=== PATIENT | male | born 1995 | race Caucasian/White ===

== ENCOUNTER 2017-05-19 16:57 | Emergency (ER) | payer SELFPAY ==
[2017-05-19] MEDS ORDERED: ACETAMINOPHEN TAB 500 MG TAB PO STA (17:19)
--- NOTE | 2017-05-19 17:19 | ED ---
General Adult HPI - General Chief complaint: Upper Respiratory Infection Stated complaint: Flu Symptoms Time Seen by Provider: 05/19/17 17:12 Source: patient, family, RN notes reviewed Mode of arrival: ambulatory Limitations: no limitations - History of Present Illness Initial comments: Patient is a pleasant 21-year-old male presenting to the emergency department with cough and fever and fatigue. Onset of symptoms was around 48 hours ago. Patient had similar symptoms a week or 2 ago. Cough is mostly nonproductive. Occasional clear sputum. Patient has had fevers up to 101 or 102. Fever seem somewhat improved today. Patient has been fatigued and sleeping a lot. No rhinorrhea or sore throat. Decreased appetite. - Related Data Home Medications Medication Instructions Recorded Confirmed No Known Home Medications [No 05/19/17 05/19/17 Known Home Medications] Allergies Allergy/AdvReac Type Severity Reaction Status Date / Time No Known Allergies Allergy Verified 05/19/17 18:06 Review of Systems ROS Statement: Those systems with pertinent positive or pertinent negative responses have been documented in the HPI. ROS Other: All systems not noted in ROS Statement are negative. Constitutional: Reports: fever, chills, weakness Eyes: Denies: eye pain ENT: Denies: ear pain Respiratory: Reports: cough Cardiovascular: Denies: chest pain Endocrine: Reports: fatigue Gastrointestinal: Denies: abdominal pain Genitourinary: Denies: dysuria Musculoskeletal: Denies: back pain Skin: Denies: rash Neurological: Denies: weakness Past Medical History Past Medical History: No Reported History Additional Past Medical History / Comment(s): CHEWS TOBACCO History of Any Multi-Drug Resistant Organisms: None Reported Past Surgical History: No Surgical Hx Reported Past Psychological History: No Psychological Hx Reported Smoking Status: Never smoker Past Alcohol Use History: None Reported Past Drug Use History: None Reported General Exam Limitations: no limitations General appearance: alert, in no apparent distress Head exam: Present: atraumatic Eye exam: Present: normal appearance, PERRL ENT exam: Present: normal oropharynx Neck exam: Present: normal inspection Respiratory exam: Present: normal lung sounds bilaterally Cardiovascular Exam: Present: tachycardia GI/Abdominal exam: Present: soft. Absent: tenderness Extremities exam: Present: normal inspection Neurological exam: Present: alert Psychiatric exam: Present: normal affect, normal mood Skin exam: Present: normal color Course Vital Signs 05/19/17 05/19/17 17:15 18:30 Temperature 99.1 F 98.6 F Pulse Rate 126 H 85 Respiratory 20 18 Rate Blood Pressure 141/90 O2 Sat by Pulse 94 L 94 L Oximetry Medical Decision Making - Medical Decision Making Patient reevaluated and resting comfortably in bed. Patient updated on results. Tamiflu would not be provided secondary to onset of symptoms was at 48 hours or more. - Lab Data Lab Results 05/19/17 Range/Units 17:42 Influenza Type A RNA Detected H (Not Detectd) Influenza Type B (PCR) Not Detected (Not Detectd) - Radiology Data Radiology results: image reviewed (Chest x-ray shows no acute process) Disposition Clinical Impression: Influenza Disposition: HOME SELF-CARE Condition: Stable Instructions: Influenza (ED) Additional Instructions: Please follow-up with primary care physician in the next day or 2 for recheck. Continue Tylenol and Motrin as needed. Return for difficulty breathing, worsening symptoms or other concerns Referrals: Sam Elaine MD [STAFF PHYSICIAN] - 1-2 days Time of Disposition: 18:35
[2017-05-19] MEDS ORDERED: IBUPROFEN 600 MG TAB PO STA (17:20)
--- NOTE | 2017-05-19 17:34 | XR ---
EXAMINATION TYPE: XR chest 2V DATE OF EXAM: 05/19/2017 COMPARISON: NONE HISTORY: Fever, cough, and congestion for 2 days TECHNIQUE: Frontal and lateral views of the chest are obtained. FINDINGS: There is no focal air space opacity, pleural effusion, or pneumothorax seen. The cardiac silhouette size is within normal limits. The osseous structures are intact. IMPRESSION: No acute cardiopulmonary process.
[2017-05-19 18:31] VITALS: PULSE 85; RESP 18; TEMP 98.6
[2017-05-19 18:45] VITALS: BP 122/66
== END 2017-05-19 18:45 | disposition home or self-care (01) ==
LOC: EC 16:57
DX: J11.1 Influenza due to unidentified influenza virus with other respiratory manifestations (principal); F17.220 Nicotine dependence, chewing tobacco, uncomplicated
CPT/HCPCS: 71046; 87502; 99283

== ENCOUNTER 2021-02-27 13:10 | Inpatient (IN) | payer MEDICAID ==
--- NOTE | 2021-02-27 14:38 | ED ---
General Adult HPI - General Source: patient, family <Emmanuel Carrillo - Last Filed: 02/27/21 14:35> - General Source: RN notes reviewed, old records reviewed <Ajit Pierce - Last Filed: 02/27/21 22:06> - General Stated complaint: mental health - History of Present Illness Initial comments: 25-year-old male presents to the emergency room for chief complaint of mental health issues. Patient's speaking for him. Patient's states that he has told her that he does not want to live anymore. He states that although he has had this he does not mean it. He gets into angry and disruptive phases which has been ongoing for about a year now. He apparently gets upset they cannot control these episodes. Since then he has been destroying things and then hitting his head on the wall. Patient does not take any medications. Patient refusing to answer questions at this time. Patient has no other complaints at this time including shortness of breath, chest pain, abdominal pain, nausea or vomiting, headache, or visual changes. (Emmanuel Carrillo) I evaluated the patient when he was placed in a room. 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 Patient's is petitioned the patient. He has been having worsening anger outbursts over the last year and a half and today was telling her that he wanted to kill himself. The patient initially was not cooperative when he arrived to the department but eventually did consent to changing clothes, and obtaining a UDS and VAT. I spoke with the patient, he has no acute complaints at this time. He is withdrawn does not want to discuss much with me. He denies any visual or auditory hallucinations, denies any suicidal or homicidal ideations, attempts, plans. He has no other acute complaints at this time. Denies any alcohol use or drug use. Has no other acute complaints and denies chest pain, shortness breath, fevers, chills, cough. Patient presents for psychiatric evaluation. I agree with the above assessment by my mid-level provider prior to my evaluation. (Ajit Pierce) - Related Data Home Medications Medication Instructions Recorded Confirmed No Known Home Medications 05/19/17 02/27/21 Allergies Allergy/AdvReac Type Severity Reaction Status Date / Time No Known Allergies Allergy Verified 02/27/21 14:35 Review of Systems ROS Other: All systems not noted in ROS Statement are negative. <Emmanuel Carrillo - Last Filed: 02/27/21 14:35> ROS Other: All systems not noted in ROS Statement are negative. <Ajit Pierce - Last Filed: 02/27/21 22:06> ROS Statement: Those systems with pertinent positive or pertinent negative responses have been documented in the HPI. Review of Systems: CONST: Denies fever EYES: Denies blurry vision ENT: Denies nasal congestion C/V: Denies Chest pain RESP: Denies shortness of breath GI: Denies abdominal pain : Denies dysuria SKIN: Denies rash. MSK: Denies joint pain. NEURO: Denies headache PSYCH: Denies suicidal and homicidal ideations/plans/attempts. Denies visual or auditory hallucinations. (Ajit Pierce) Past Medical History Past Medical History: No Reported History Additional Past Medical History / Comment(s): CHEWS TOBACCO History of Any Multi-Drug Resistant Organisms: None Reported Past Surgical History: No Surgical Hx Reported Past Psychological History: No Psychological Hx Reported Past Alcohol Use History: None Reported Past Drug Use History: None Reported <Emmanuel Carrillo - Last Filed: 02/27/21 14:35> General Exam General appearance: alert Psychiatric exam: Present: agitated <Emmanuel Carrillo - Last Filed: 02/27/21 14:35> <Ajit Pierce - Last Filed: 02/27/21 22:06> - General Exam Comments Initial Comments: General: Appears in no acute distress. HEAD: With no signs of severe head trauma. He does have small abrasion located over the right frontal forehead with no active bleeding. There is no skin breakdown. EYES: PERRLA, EOMI, conjunctiva normal, no discharge. Pupils are 3 mm and e qual bilaterally. ENT: Hearing grossly intact, normal oropharynx. RESPIRATORY: Clear breath sounds bilaterally. No wheezes, rales, or rhonchi. C/V: Regular rate and rhythm. S1 and S2 auscultated, no edema, peripheral pulses 2+ and intact throughout ABD: Abd is soft, nontender, nondistended EXT: Normal range of motion, no obvious deformity SKIN: No rashes or lesions observed on exposed skin. NEURO: Alert and oriented 4. No focal deficits appreciated. (Ajit Pierce) Course Vital Signs 02/27/21 02/27/21 02/27/21 15:37 16:00 17:00 Respiratory 20 20 20 Rate 02/27/21 02/27/21 18:00 19:00 Respiratory 20 20 Rate Medical Decision Making <Ajit Pierce - Last Filed: 02/27/21 22:06> - Medical Decision Making Based on the patient's presentation and physical exam, I do believe that he requires EPS evaluation. BAT was 0. UDS was ordered. At this time the patient is medically cleared for evaluation by psychiatry. They were notified. Patient and his are in agreement this plan. Disposition is pending psychiatric evaluation. Psychiatry determined that the patient requires inpatient psychiatric admission. Patient will not Pont[place] sign himself in. Certification was contacted by myself. Patient was therefore admitted to inpatient psychiatry in stable condition. (Ajit Pierce) - Lab Data Lab Results 02/27/21 Range/Units 18:31 Coronavirus (PCR) Not Detected (Not Detectd) Disposition <Emmanuel Carrillo - Last Filed: 02/27/21 14:35> <Ajit Pierce - Last Filed: 02/27/21 22:06> Clinical Impression: Encounter for psychiatric assessment Disposition: ADMITTED IP TO THIS HOSP Condition: Stable
[2021-02-27] MEDS ORDERED: HALOPERIDOL LACTATE 5 MG/ML 1 ML VIAL IM PRN ×2 (18:01→19:40)
[2021-02-27] MEDS ORDERED: LORazepam 2 MG/ML INJ IM PRN ×2 (18:01→19:40)
[2021-02-27] MEDS ORDERED: IBUPROFEN 600 MG TAB PO STA (18:25)
[2021-02-27] MEDS ORDERED: MAG HYDROX/AL HYDROX/SIMETH 30 ML CUP PO PRN (19:39)
[2021-02-27] MEDS ORDERED: MAGNESIUM HYDROXIDE 2,400 MG/10 ML CUP PO PRN (19:39)
[2021-02-27] MEDS ORDERED: LORazepam 1 MG TAB PO PRN (19:39)
[2021-02-27] MEDS ORDERED: ACETAMINOPHEN TAB 325 MG TAB PO PRN (19:39)
[2021-02-27] MEDS ORDERED: haloperidoL 5 MG TAB PO PRN (19:40)
--- NOTE | 2021-02-27 23:52 | P.PN ---
Progress Note - Text Progress Note Date: 02/27/21 Patient is refusing care
[2021-02-28 08:32] LABS: ALT 42 U/L (4-49); AST 35 U/L (17-59); African American GFR (CKD) >90 (>60 ml/min/1.73 sqM); Albumin 4.9 g/dL (3.5-5.0); Alkaline Phosphatase 89 U/L (38-126); Anion Gap 10 mmol/L; Blood Urea Nitrogen 25 mg/dL (9-20); Calcium 10.4 mg/dL (8.4-10.2); Carbon Dioxide 30 mmol/L (22-30); Chloride 96 mmol/L (98-107); Glucose 75 mg/dL (74-99); Non-African American GFR(CKD) >90 (>60 ml/min/1.73 sqM); Potassium 4.6 mmol/L (3.5-5.1); Sodium 136 mmol/L (137-145); Total Bilirubin 2.3 mg/dL (0.2-1.3); Total Protein 7.9 g/dL (6.3-8.2)
[2021-02-28 09:05] LABS: Basophils # (A) 0.1 k/uL (0-0.2); Basophils % (A) 1 %; Eosinophils # (A) 0.1 k/uL (0-0.7); Eosinophils % (A) 1 %; HCT 50.8 % (39.0-53.0); HGB 17.3 gm/dL (13.0-17.5); Lymphocytes # (A) 1.8 k/uL (1.0-4.8); Lymphocytes % (A) 21 %; MCH 29.3 pg (25.0-35.0); MCHC 34.1 g/dL (31.0-37.0); Mean Platelet Volume 6.7; Monocytes # (A) 0.4 k/uL (0-1.0); Monocytes % (A) 5 %; Neutrophils # (A) 6.1 k/uL (1.3-7.7); Neutrophils % (A) 71 %; Platelet Count 321 k/uL (150-450); RBC 5.91 m/uL (4.30-5.90); RDW 12.2 % (11.5-15.5); WBC 8.5 k/uL (3.8-10.6)
[2021-02-28] MEDS: OLANZapine 5 MG TAB PO SCH ×2 (12:54→23:57)
[2021-02-28] MEDS: FLUoxetine HCL 20 MG CAP PO SCH (12:54)
[2021-02-28 15:58] LABS: Chol/HDL Ratio 3.94 Ratio; LDL Cholesterol,Calculated 148.9 mg/dL (0.0-131.0)
--- NOTE | 2021-02-28 17:13 | HP ---
HISTORY AND PHYSICAL DATE OF SERVICE: 02/28/2021 IDENTIFYING DATA: The patient is a 25-year-old male. He lives with his . He presented to the ED for evaluation where his completed a petition for involuntary hospitalization. CHIEF COMPLAINT: The patient was depressed. He was having anger outbursts with property destruction. He has significant feelings of guilt. HISTORY OF PRESENTING ILLNESS: The patient has not had a prior psychiatric hospitalization. He has not been involved in any mental health care. He has not been on any psychotropic medications. His current situation is that he has periodic outbursts where he gets very angry. He says for the most part he focuses the anger on himself and starts ruminating about the idea that he has done bad things and that there is something wrong with him. He says that he gets in a very extreme state, though he does not want to hurt anyone else, so as such he may break things. He says that typically if he is holding something in his hand he will throw it. He has broken objects. He was vague about how often he gets into these anger outbursts. He says the more severe ones would occur once every few months. He acknowledges that his has been concerned about his situation, though he was not able to give much detail as to how his sees his situation. He notes that his sleep is up and down. He says his appetite is fairly good. He does not identify hallucinations or delusional thinking. He says he has significant anxiety at times and can have panic attacks. He questions whether he has some posttraumatic issues. It is noted that he had a difficult growing up. He notes that his parents were most likely never together. He lived mainly with his mother though did have visits with his father. When he was in fourth grade his father hung himself, committing suicide. He recalls that his father called him the night before the suicide, making a statement, "The money is on its way." He says he subsequently interpreted that as that he or family would be receiving money from father's life insurance. He said that he had no awareness of his father's mental health state. His father was single and had moved back in with the father's parents. Mostly he lived with his mother. He was the only child. He said that he was left at home alone much of the time from fairly young days. He describes depressed moods, loss of energy and motivation. He denies any substance use issues, though said that he did drink moderately or more, though stopped using alcohol two years ago. He is admitted for further evaluation. SUBSTANCE USE HISTORY: None reported. PAST MEDICAL HISTORY: Patient reported no chronic or current general health complaints. It is noted that the patient hit his head against the wall as part of the issues leading to this hospitalization. He has significant bruising on his forehead. FAMILY AND SOCIAL HISTORY: The patient has been together with his since 2014. The two of them have been 2 years. He graduated from high school. He dropped out of college during his first year when he was at [employer]. At that time he had thought about going into athletic training. He currently works doing various [employer] jobs. He says it is on a tym-ulp-bzpi basis. He has been hoping to develop it into a business. He said he would consider going back to [employer] to study business; that might help him with his efforts. MENTAL STATUS EXAM: Patient sat without restlessness. Eye contact was fair. Psychomotor activity was slowed. Speech was monotone. He answered questions with brief responses. His thoughts were clear and coherent. He did not say a lot. He was not spontaneous or interactive. His affect was flat, his mood depressed. He seemed significantly distressed. There was no indication of thought disorder. He denied thoughts of harm at the time of the interview, though his documented on petition that he had made statements of not wanting to live any longer. On cognitive exam he was oriented x3 and alert. Recent and remote memory was intact. He could give 3/3 objects in 4 minutes. He could spell "world" forward and backwards. He could give the days of the week in reverse order without difficulties. Fund of knowledge was average or somewhat above average, insight and judgment fair. PHYSICAL EXAMINATION: As per medical consultation. ASSESSMENT: This 25-year-old male is diagnosed with major depression. He has significant issues with guilt that seem to drive some of his outbursts. He is not able to clearly identify where his distressing emotions come from, though then typically takes it out on himself. Strengths include [place] intelligence. Weakness includes his difficulties with expressing emotions in a productive way. DIAGNOSIS: 1. Major depression, chronic and recurrent, severe, without psychotic features. 2. Rule out posttraumatic stress disorder. RECOMMENDATIONS: Patient will be admitted for comprehensive medical, psychiatric and psychosocial evaluation. We will engage the patient in individual and group therapeutic activities. I had an extensive discussion with the patient regarding his situation and a discussion of medication options. The patient was willing to initiate antidepressant therapy. I will start the patient on Prozac 20 mg a day. I discussed the treatment process related to antidepressants. I talked about side effects and also the time course of treatment. In addition I will start the patient on Zyprexa 5 mg twice a day. The aim of Zyprexa is to help reduce physiologic stress response relating to his high anxiety that leads to self-abusive outbursts. Zyprexa also is indicated to augment his antidepressant. We will set up a family meeting with the patient's for tomorrow. We will focus on stabilization and discharge planning. JORGE / NIKUNJ: [id number] /
[2021-03-01] MEDS: OLANZapine 5 MG TAB PO SCH ×2 (08:51→20:47)
[2021-03-01] MEDS: FLUoxetine HCL 20 MG CAP PO SCH (08:51)
--- NOTE | 2021-03-01 11:44 | PN ---
PROGRESS NOTE DATE OF SERVICE: 03/01/2021. CHIEF COMPLAINT: The patient was depressed. He was having anger outbursts with property destruction. He had significant feelings of guilt. INTERVAL HISTORY: The patient has been doing fair. He had a quiet day yesterday. He tends to keep to himself. He does not interact much. He comes on the unit some. He did not attend groups yesterday. He talked yesterday about being quite distressed about being in the hospital because he felt claustrophobic. He said he slept fair last night. He has been cooperative with care. Today he has been up. Again he continues to keep to himself. We had a family meeting with the patient and his . It is noteworthy that throughout the family meeting, the patient said very little. His notes that he has had problems with anger outbursts. When he would get into an outburst, typically it would last for a few days or more. He then might get into a period where he would just sleep excessively and complain of feeling hot and sweaty. She noted that problems seemed to become more pronounced in the summer of 2019. He has had a gradual progression since then. She notes that this past summer he seemed to be doing okay in his moods, though over the last several weeks or more he has been showing more difficulties with a down mood. She notes that he does have times where he gets involved in activities and then loses track of time to a pretty significant degree. He might be up all night engaged in some activity and not be aware that it is already early in the morning. The same would be true at work, that he could work all day and then in the evening time make mention of the fact that he had not eaten all day. This again is something that has been showing up over the last year and somewhat progressive. Neither the patient nor his could identify any specific things that would seem to precipitate these mood difficulties. While the patient had stated previously that when he would get into anger spells he might throw something that he had in his hand, his today noted that things were more severe than that, where he would break things and that he could be destructive over a matter of a few days. When he is in one of the spells, he has difficulty identifying what the issues are. When he is outside of one of these periods, he is not really able to talk about emotions or risk factors for these events. From the 's standpoint, she noted that she was very significantly concerned about his condition. She was quite tearful at different times during the interview, describing how she was scared for him. It is noted that from the patient's standpoint, he said very little about most of his issues. He did express distress about the whole idea of being in the hospital and believed that the hospital does not have anything to offer that will benefit him. I did review treatment issues with the patient and his . It is noted that when I talked about the possibility of going up on the Zyprexa for high stress, the patient seemed to become somewhat disgruntled by that idea, stating that he had not been on the twice-a-day dosing to see how well that would work before considering going higher, though his did state that his main concern about medications is he not be on medications that would make him be "a zombie." He reports no problems or side effects relating to his medications. MENTAL STATUS: Patient sat in the family session in a slumped posture with his head down. He gave no eye contact. Early on in the interview he said almost nothing. As the interview went on, he did make a few statements, though mostly he talked in very brief statements and did not elaborate. His affect was anxious and intense, his mood depressed. He was significantly distressed. He did not voice any thoughts of harm. He was oriented and alert. ASSESSMENT: I will continue the current diagnosis and treatment plan. I will continue psychotropic medications the same. I will continue Prozac 20 mg a day and Zyprexa 5 mg twice a day. I had an extensive discussion with the patient and his in regard to the indication for medications and the general treatment course. I noted that the Zyprexa is potentially a shorter-term medication for possibly 1 to 2 months to help augment his antidepressant as well as to help reduce physiologic stress response relating to his severe outbursts that he has. Also he may have some underlying PTSD issues that Zyprexa would be appropriate for. I talked about long-term treatment for antidepressant therapy. We will focus on stabilization and discharge planning. I shared that I would anticipate that the patient would be discharged possibly by Saturday, or no longer than early into the following week. MMODL / IJN: [id number] /
--- NOTE | 2021-03-01 12:45 | P.CONS ---
History of Present Illness - Reason for Consult Medical management - Chief Complaint Major depressive disorder - History of Present Illness 25-year-old male presents to the emergency room for chief complaint of mental health issues. Per patient he goes to intermittent episodes of feeling depressed and wanting to hurt himself. However, patient has never had a plan to kill himself. Patient states that he just gets down sometimes cuts himself. Patient also gets angry for no reason at times. Per documentation, Patient's stated that he has told her that he does not want to live anymore. He stated that although she thinks this he does not mean it. He gets into angry and disruptive phases which has been ongoing for about a year now. He apparently gets so upset that he cannot control these episodes. Since then, he has been destroying things and then hitting his head on the wall. Patient does not take any medications. Patient has no other complaints at this time including shortness of breath, chest pain, abdominal pain, nausea or vomiting, headache, or visual changes Review of Systems A 14 point review systems was assessed patient was only positive for those dictated in HPI Past Medical History Past Medical History: No Reported History Additional Past Medical History / Comment(s): CHEWS TOBACCO History of Any Multi-Drug Resistant Organisms: None Reported Past Surgical History: No Surgical Hx Reported Smoking Status: Never smoker Medications and Allergies Home Medications Medication Instructions Recorded Confirmed Type No Known Home Medications 05/19/17 02/27/21 History Allergies Allergy/AdvReac Type Severity Reaction Status Date / Time No Known Allergies Allergy Verified 02/27/21 14:35 Physical Exam Osteopathic Statement: *. No significant issues noted on an osteopathic structural exam other than those noted in the History and Physical/Consult. Vitals: Vital Signs Temp Pulse Resp BP 03/01/21 06:16 97.9 F 62 14 124/72 General: [non toxic], [no distress], [appears at stated age] Derm: [warm], [dry] Head: [atraumatic], [normocephalic], [symmetric] Eyes: [EOMI], [no lid lag], [anicteric sclera] Mouth: [no lip lesion], [mucus membranes moist] Cardiovascular: [S1S2 reg], [no murmur], [positive posterior tibial pulse bilateral], Lungs: [CTA bilateral], [no rhonchi, no rales] , [no accessory muscle use] Abdominal: [soft], [ nontender to palpation], [no guarding], [no appreciable organomegaly] Ext: [no gross muscle atrophy], [no edema], [no contractures] Neuro: [ CN II-XI grossly intact], [no focal neuro deficits] Psych: [Alert], [oriented], [appropriate affect] Results CBC & Chem 7: 02/28/21 07:45 02/28/21 07:45 Labs: Abnormal Lab Results - Last 24 Hours (Table) 02/28/21 Range/Units 07:45 Cholesterol 229.00 H (0.00-200.00) mg/dL LDL Cholesterol, Calc 148.9 H (0.0-131.0) mg/dL Assessment and Plan Assessment: Major depressive disorder Psychiatry recommendations appreciated Continue to monitor vitals No indication for blood work at this time Labs reviewed Follow-up when necessary Time with Patient: Greater than 30
[2021-03-02] MEDS: OLANZapine 5 MG TAB PO SCH (09:02)
[2021-03-02] MEDS: FLUoxetine HCL 20 MG CAP PO SCH (09:02)
[2021-03-02] MEDS ORDERED: FLUoxetine HCL 20 MG CAP PO STA (09:15)
--- NOTE | 2021-03-02 09:48 | P.PN ---
Progress Note - Text Progress Note Date: 03/02/21 Interval History: Patient was seen lying in his bed this morning and was directable and agreeable to speak with specifications writer in the office. Patient claims that he is doing mildly better today and describes his mood as a "5 out of 10". He states that his anxieties been mildly improving. He was agreeable to have his Prozac increased today. He asked questions about his medications and the dosing. He claims that he is not having thoughts today of self-harm. He described briefly the events that occurred prior to him coming into the hospital. He states that he is feeling tired during the day. He claims that he is trying to go to groups and participate as best as he can. He is denying any access to guns at home. He states that his appetite is fair. He claims that he is able to sleep throughout the night. At this time patient denies any suicidal or homical ideations, intent or plan. Patient denies any auditory, visual hallucinations and denies any paranoia or delusions. Patient denies any side effects from the medications and has been compliant with meds. Mental Status Exam: General Appearance: Patient appears to be thin, stated age is alert, directable, and cooperative. improvng leonidas contact. Behavior: Patient is calmly seated without any agitated behavior. Speech: Patient's speech is fluent and nonpressured. Mood/Affect: Mood is improving mildly, affect is congruent and constricted. Suicidality/Homicidality: Patient denies having any suicidal or homicidal ideation intent or plan. Perceptions: Patient denies any visual hallucinations and denies any auditory hallucinations Though content/process: There is no evidence of any delusional thought content and thought process is linear and goal-directed. Memory and concentration: AOX3, grossly intact for the purposes of this session Judgment and insight: Improving mildly Assessment Depressive disorder NOS, r/o bipolar depression Plan: -Patient continues to meet criteria for inpatient psychiatric admission for symptom stabilization and safety. Patient has signed adult voluntary form and medication consent and was placed in patient's chart. -Medications: Increased Prozac to 40 mg daily for mood/anxiety. Decreased Zyprexa to 5 mg daily at bedtime for insomnia/mood stabilization. -When necessary Ativan and Haldol for agitation/aggression. -NRT -not needed as patient does not smoke -SW on board for discharge planning. Encouraged the patient to participate in milieu. conversion worker to make contact with patient's and prepare for likely discharge tomorrow and ensure that environment is safe.
[2021-03-02] MEDS ORDERED: OLANZapine 5 MG TAB PO SCH (21:00)
[2021-03-03 05:59] VITALS: BP 113/77; PULSE 55; RESP 18; TEMP 97.3
[2021-03-03] MEDS ORDERED: FLUoxetine HCL 20 MG CAP PO SCH (09:00)
--- NOTE | 2021-03-03 10:12 | P.DS ---
Providers Date of admission: 02/27/21 19:35 Expected date of discharge: 03/03/21 Attending physician: Lino Sanchez MD Consults: 02/27/21 19:39 Consult Physician Routine Consulting Provider: [facility] Consult Reason/Comments: H&P and medical Do you want consulting provider notified?: Yes Primary care physician: Stated None - Discharge Diagnosis(es) (1) Depressive disorder Current Visit: Yes Status: Acute Priority: High Hospital Course: Admission HPI: Admission note was completed by Dr. monreal "the patient is a 25-year-old male. He lives with his life. He presented to the ED for evaluation. His completed a petition for involuntary hospitalization. The patient was depressed. He was having anger outbursts with property destruction. He has significant feelings of guilt. The patient has not had a prior psychiatric hospitalization. He has not been involved in any mental health care. He has not been on any psychotropic medications. His current situation is that he has periodic outbursts or he gets very angry. He says for the most part he focuses on the anger on himself and starts ruminating about the idea that he has done bad things and that there is something wrong with him. He says that he gets in very extreme state, though he does not want to hurt anyone else so as such he may bring break things. He says that typically if he is holding something in his hand he will throw it. He has broken objects. He was vague about how often he gets into these anger outburst. He says the more severe ones would occur once every few months. He acknowledges that his has been concerned about his situation though he was not able to give much detail as to how his sees his situation. He notes that his sleep is up and down. He says his appetite is fairly good. He does not identify hallucinations or delusional thinking. He says he has significant anxiety at this time and can have panic attacks. He questions whether he has some posttraumatic issues. It is noted that he had a difficult growing up. He notes that his parents were most likely never together. He lived mainly with his mother though did have visits with his father. When he was in fourth grade his father hung himself, committing suicide. He recalls that his father called him the night before the suicide, making a statement "the money is on its way." He says he subsequently interpreted that as he or family would be receiving money from father's life insurance. He said that he had no awareness of his father's mental health state. His father was single and had moved back in with his father's parents. Mostly he lived with his mother. He was the only child. He said that he was left at home alone much of the time from fairly young days. He describes depressed mood, loss of energy and motivation. He denies any substance use issues, though said that he did drink moderately or more, though stopped using alcohol 2 years ago. He is admitted for further evaluation." Hospital course: Upon admission to the unit patient was directable and agreeable to commence treatment and signed adult voluntary form . Patient got along well with other patients on the unit and followed unit protocol. Patient was compliant with the medications and denied any side effects throughout hospital course. Patient was started on Prozac and titrate up the dose of 40 mg daily for mood/anxiety. Patient was also started on Zyprexa 5 mg daily at bedtime for mood stabilization/insomnia. Patient spoke of his stressors and engaged in therapy both group and individual. She was also able to work on his coping skills and distress tolerance. Patient was also seen by medical team for history and physical exam. Throughout the course of the hospitalization patient gradually improved with regards to mood lability, anxiety, sleep and became more future o riented with improved insight and judgment. On the day of discharge patient denied any suicidal or homicidal ideations intent or plan denied any auditory or visual hallucinations. Patient endorsed wanting to live for his health and family. The patient denied any access to guns or weapons. Patient denied any paranoia and did not endorse any delusions. Patient does not have a significant history of substance abuse however was counseled on abstaining from all substances including alcohol and marijuana. Patient was also counseled on the medications and need for regular compliance and was encouraged to follow-up with their outpatient appointment for mental health and also for primary care. Prior to discharge a family meeting will be arranged by social and political studies professor to answer any questions and ensure safety upon discharge. Mental status exam: General Appearance: Patient appears to be thin, stated age is alert, pleasant, and cooperative. Patient is in no acute distress and has improved hygiene and grooming Behavior: Patient is calmly seated without any agitated behavior. Speech: Patient's speech is fluent and nonpressured. Mood/Affect: Patient reports their mood is "good", affect is congruent and euthymic. Suicidality/Homicidality: Patient denies having any suicidal or homicidal ideation intent or plan. Perceptions: Patient denies any auditory or visual hallucinations. Though content/process: There is no evidence of any delusional thought content and thought process is linear and goal-directed. more future oriented Memory and concentration: AOX3, grossly intact for the purposes of this session. Can spell "WORLD" backwards correctly. Judgment and insight: chronically poor, however has improved with guarded prognosis Impression: Depressive disorder unspecified, rule out bipolar depression vs major depressive disorder Plan: -Continue with discharge today as patient has improved and stabilized psychiatrically and is not currently an imminent threat to himself and/or others. Patient will remain at chronically elevated risk for harm to self and/or others due to his impulsivity. -Continue medications: Continue Prozac 40 mg daily for mood/anxiety, Zyprexa 5 mg daily at bedtime for insomnia/mood stabilization. -Patient was counseled on the need for medication compliance and appropriate follow-up at mental health and also primary care for medical issues. Patient verbalized understanding and agreed. -Social work to arrange for and conduct family meeting to ensure safety upon discharge and answer any questions/concerns. Social work also to arrange for patients follow up appointments for psychiatric care along with follow up with primary care provider. -Patient counseled on abstaining from recreational drugs and marijuana and alcohol. Was informed/educated on the adverse effects on their physical and mental health. Patient verbally agreed and understood. -Patient was instructed to return to the hospital or seek immediate medical care if their psychiatric or medical symptoms do worsen or reoccur. Allergies Allergy/AdvReac Type Severity Reaction Status Date / Time No Known Allergies Allergy Verified 02/27/21 14:35 Laboratory Results WBC 8.5 k/uL (3.8-10.6) 02/28/21 07:45 RBC 5.91 m/uL (4.30-5.90) H 02/28/21 07:45 Hgb 17.3 gm/dL (13.0-17.5) 02/28/21 07:45 Hct 50.8 % (39.0-53.0) 02/28/21 07:45 MCV 86.0 fL (80.0-100.0) 02/28/21 07:45 MCH 29.3 pg (25.0-35.0) 02/28/21 07:45 MCHC 34.1 g/dL (31.0-37.0) 02/28/21 07:45 RDW 12.2 % (11.5-15.5) 02/28/21 07:45 Plt Count 321 k/uL (150-450) 02/28/21 07:45 MPV 6.7 02/28/21 07:45 Neutrophils % 71 % 02/28/21 07:45 Lymphocytes % 21 % 02/28/21 07:45 Monocytes % 5 % 02/28/21 07:45 Eosinophils % 1 % 02/28/21 07:45 Basophils % 1 % 02/28/21 07:45 Neutrophils # 6.1 k/uL (1.3-7.7) 02/28/21 07:45 Lymphocytes # 1.8 k/uL (1.0-4.8) 02/28/21 07:45 Monocytes # 0.4 k/uL (0-1.0) 02/28/21 07:45 Eosinophils # 0.1 k/uL (0-0.7) 02/28/21 07:45 Basophils # 0.1 k/uL (0-0.2) 02/28/21 07:45 Sodium 136 mmol/L (137-145) L 02/28/21 07:45 Potassium 4.6 mmol/L (3.5-5.1) 02/28/21 07:45 Chloride 96 mmol/L (98-107) L 02/28/21 07:45 Carbon Dioxide 30 mmol/L (22-30) 02/28/21 07:45 Anion Gap 10 mmol/L 02/28/21 07:45 BUN 25 mg/dL (9-20) H 02/28/21 07:45 Creatinine 0.94 mg/dL (0.66-1.25) 02/28/21 07:45 Est GFR (CKD-EPI)AfAm >90 (>60 ml/min/1.73 sqM) 02/28/21 07:45 Est GFR (CKD-EPI)NonAf >90 (>60 ml/min/1.73 sqM) 02/28/21 07:45 Glucose 75 mg/dL (74-99) 02/28/21 07:[address] Glu mg/dL 97 02/28/21 07:45 Hemoglobin A1c 5.0 % (4.0-6.0) 02/28/21 07:45 Calcium 10.4 mg/dL (8.4-10.2) H 02/28/21 07:45 Total Bilirubin 2.3 mg/dL (0.2-1.3) H 02/28/21 07:45 AST 35 U/L (17-59) 02/28/21 07:45 ALT 42 U/L (4-49) 02/28/21 07:45 Alkaline Phosphatase 89 U/L (38-126) 02/28/21 07:45 Total Protein 7.9 g/dL (6.3-8.2) 02/28/21 07:45 Albumin 4.9 g/dL (3.5-5.0) 02/28/21 07:45 Triglycerides 110.00 mg/dL (0.00-149.00) 02/28/21 07:45 Cholesterol 229.00 mg/dL (0.00-200.00) H 02/28/21 07:45 LDL Cholesterol, Calc 148.9 mg/dL (0.0-131.0) H 02/28/21 07:45 VLDL Cholesterol, Calc 22.00 mg/dL (5.00-40.00) 02/28/21 07:45 HDL Cholesterol 58.10 mg/dL (40.00-60.00) 02/28/21 07:45 Cholesterol/HDL Ratio 3.94 Ratio 02/28/21 07:45 TSH 0.868 mIU/L (0.465-4.680) 02/28/21 07:45 Coronavirus (PCR) Not Detected (Not Detectd) 02/27/21 18:31 Vital Signs Temp 97.3 F L 03/03/21 05:58 Pulse 55 L 03/03/21 05:58 Resp 18 03/03/21 05:58 BP 113/77 03/03/21 05:58 Pulse Ox 97 02/27/21 20:10 Patient Condition at Discharge: Stable Plan - Discharge Summary New Discharge Prescriptions: New FLUoxetine HCL [PROzac] 40 mg PO DAILY 40 Days cap OLANZapine [ZyPREXA] 5 mg PO HS 30 Days tab Discharge Medication List FLUoxetine HCL [PROzac] 40 mg PO DAILY 40 Days cap 03/03/21 [Rx] OLANZapine [ZyPREXA] 5 mg PO HS 30 Days tab 03/03/21 [Rx] Follow up Appointment(s)/Referral(s): [facility] [Outside] - 03/09/21 1:30 pm (Ferdinand Goetz) None,Stated [Primary Care Provider] - 1-2 days Activity/Diet/Wound Care/Special Instructions: Activity and diet as tolerated. Avoid the use of street drugs and alcohol. Take all medications as prescribed. When you are in need of refills on your medications please contact your medical provider and/or outpatient psychiatrist to have this done. Please go to scheduled outpatient appointment for aftercare treatment. If symptoms return or become worse, call the crisis line at and/or go to the nearest emergency room for evaluation. Discharge Disposition: HOME SELF-CARE
== END 2021-03-03 11:57 | disposition home or self-care (01) | DRG 885 ==
LOC: EC 13:10 → 3MHU 19:35
PROVIDERS: ADMIT Psychiatry & Neurology Psychiatry; ATTEND Psychiatry & Neurology Psychiatry
DX: F33.2 Major depressive disorder, recurrent severe without psychotic features (principal); F17.220 Nicotine dependence, chewing tobacco, uncomplicated; G47.00 Insomnia, unspecified; Z20.822 Contact with and (suspected) exposure to COVID-19; Z79.899 Other long term (current) drug therapy; Z87.820 Personal history of traumatic brain injury
CPT/HCPCS: 80053; 80061; 82075; 83036; 84443; 85025; 87635; 99285

== ENCOUNTER → 2021-03-17 | Outpatient (CLI) | payer MEDICAID | END | disposition home or self-care (01) | LOC: LABWHC1 15:11 | PROVIDERS: ATTEND Family Medicine | DX: F33.1 Major depressive disorder, recurrent, moderate (principal); R45.4 Irritability and anger | CPT/HCPCS: 36415; 82390; 84443 ==

== ENCOUNTER 2024-03-02 11:44 | Emergency (ER) | payer MEDICAID ==
[2024-03-02 11:59] VITALS: TEMP 98
[2024-03-02] MEDS: LIDOCAINE 1% INJ 10MG/ML (20 ML MDV) SQ ONE (12:04)
[2024-03-02] MEDS: DIPH,PERTUS(ACELL)TETVAC-LF 0.5 ML VIAL IM ONE (12:18)
--- NOTE | 2024-03-02 12:18 | ED ---
General Adult HPI - General Stated complaint: Stitches for left hand Time Seen by Provider: 03/02/24 11:46 Source: patient, RN notes reviewed Mode of arrival: ambulatory Limitations: no limitations - History of Present Illness Initial comments: 28-year-old male presents emergency department chief complaint of left hand laceration. Patient states that he was trying to remove a bearing when it broke causing a laceration to his left hand over his fifth MCP region. Patient is unsure when his last tetanus was. Patient states bleeding is controlled - Related Data Previous Rx's Medication Instructions Recorded FLUoxetine HCL [PROzac] 40 mg PO DAILY 40 Days cap 03/03/21 OLANZapine [ZyPREXA] 5 mg PO HS 30 Days tab 03/03/21 Allergies Allergy/AdvReac Type Severity Reaction Status Date / Time No Known Allergies Allergy Verified 03/02/24 11:59 Review of Systems ROS Statement: Those systems with pertinent positive or pertinent negative responses have been documented in the HPI. ROS Other: All systems not noted in ROS Statement are negative. Past Medical History Past Medical History: No Reported History Additional Past Medical History / Comment(s): CHEWS TOBACCO History of Any Multi-Drug Resistant Organisms: None Reported Past Surgical History: No Surgical Hx Reported Past Psychological History: No Psychological Hx Reported Smoking Status: Never smoker Past Alcohol Use History: None Reported Past Drug Use History: None Reported General Exam Limitations: no limitations General appearance: alert, in no apparent distress Head exam: Present: atraumatic, normocephalic, normal inspection Eye exam: Present: normal appearance, PERRL, EOMI. Absent: scleral icterus, conjunctival injection, periorbital swelling ENT exam: Present: normal exam, normal oropharynx, mucous membranes moist Neck exam: Present: normal inspection, full ROM. Absent: tenderness, meningismus, lymphadenopathy Respiratory exam: Present: normal lung sounds bilaterally. Absent: respiratory distress, wheezes, rales, rhonchi, stridor Cardiovascular Exam: Present: regular rate, normal rhythm, normal heart sounds. Absent: systolic murmur, diastolic murmur, rubs, gallop, clicks Extremities exam: Present: other (MDM fifth MCP region 2 cm laceration no tendon involvement full range of motion all digits) Course Vital Signs 03/02/24 03/02/24 03/02/24 11:57 12:34 13:17 Temperature 98 F Pulse Rate 80 78 65 Respiratory 18 17 16 Rate Blood Pressure 139/91 135/71 130/60 O2 Sat by Pulse 98 100 98 Oximetry Procedures - Laceration Laceration #1 Consent Obtained: verbal consent Indication: laceration Site: hand (LEFT HAND fifth MCP region) Size (cm): 2 Description: linear Depth: simple, single layer Anesthetic Used: lidocaine 1%, without epi Anesthesia Technique: local infiltration Amount (mls): 3 Pre-repair: wound explored, irrigated extensively, deep structures intact Type of Sutures: nylon Size of Sutures: 4-0 Number of Sutures: 4 Technique: simple, interrupted Patient Tolerated Procedure: well, no complications Medical Decision Making - Medical Decision Making Was pt. sent in by a medical professional or institution (BILL Rosenthal, IRRIGATION PUMP INSTALLER, urgent care, hospital, or fdc...) When possible be specific @ -No Did you speak to anyone other than the patient for history (EMS, parent, family, police, friend...)? What history was obtained from this source @ -No Did you review nursing and triage notes (agree or disagree)? Why? @ -I reviewed and agree with nursing and triage notes Were old charts reviewed (outside hosp., previous admission, EMS record, old EKG, old radiological studies, urgent care reports/EKG's, fdc records)? Report findings @ -No old charts were reviewed Differential Diagnosis (chest pain, altered mental status, abdominal pain women, abdominal pain men, vaginal bleeding, weakness, fever, dyspnea, syncope, headache, dizziness, GI bleed, back pain, seizure, CVA, palpatations, mental health, musculoskeletal)? @ -Abrasion, laceration EKG interpreted by me (3pts min.). @ -None X-rays interpreted by me (1pt min.). @ -None done CT interpreted by me (1pt min.). @ -None done U/S interpreted by me (1pt. min.). @ -None done What testing was considered but not performed or refused? (CT, X-rays, U/S, labs)? Why? @ -None What meds were considered but not given or refused? Why? @ -None Did you discuss the management of the patient with other professionals (professionals i.e. BILL Rosenthal, IRRIGATION PUMP INSTALLER, lab, RT, psych nurse, secondary social studies teacher, technical account representative, teacher, executive officer, rn field case manager)? Give summary @ -No Was smoking cessation discussed for >3mins.? @ -No Was critical care preformed (if so, how long)? @ -No Were there social determinants of health that impacted care today? How? (Homelessness, low income, unemployed, alcoholism, drug addiction, transportation, low edu. Level, literacy, decrease access to med. care, senior living, rehab)? @ -No Was there de-escalation of care discussed even if they declined (Discuss DNR or withdrawal of care, Hospice)? DNR status @ -No What co-morbidities impacted this encounter? (DM, HTN, Smoking, COPD, CAD, Cancer, CVA, ARF, Chemo, Hep., AIDS, mental health diagnosis, sleep apnea, morbid obesity)? @ -None Was patient admitted / discharged? Hospital course, mention meds given and route, prescriptions, significant lab abnormalities, going to OR and other pertinent info. @ -Discharge patient had laceration repair tetanus was updated will be discharged in stable condition. Undiagnosed new problem with uncertain prognosis? @ -No Drug Therapy requiring intensive monitoring for toxicity (Heparin, Nitro, Insulin, Cardizem)? @ -No Were any procedures done? @ -No Diagnosis/symptom? @ -Left hand laceration Acute, or Chronic, or Acute on Chronic? @ -Acute Uncomplicated (without systemic symptoms) or Complicated (systemic symptoms)? @Uncomplicated Side effects of treatment? @ -No Exacerbation, Progression, or Severe Exacerbation? @ -No Poses a threat to life or bodily function? How? (Chest pain, USA, MS, pneumonia, PE, COPD, DKA, ARF, appy, cholecystitis, CVA, Diverticulitis, Homicidal, Suicidal, threat to staff... and all critical care pts) @ -No Disposition Clinical Impression: Laceration of left hand Disposition: HOME SELF-CARE Condition: Stable Instructions (If sedation given, give patient instructions): Care For Your Stitches (ED), Laceration (ED) Additional Instructions: Have sutures removed in 10 to 14 days. Please return to the Emergency Department if symptoms worsen or any other concerns. Is patient prescribed a controlled substance at d/c from ED?: No Referrals: Skinny Gilliland Jr, DO [Primary Care Provider] - 1-2 days Time of Disposition: 12:18
[2024-03-02] MEDS: BACITRACIN OINT 1 EACH PACKET TOPICAL ONE (12:32)
[2024-03-02 13:17] VITALS: BP 130/60; PULSE 65; RESP 16
== END 2024-03-02 13:17 | disposition home or self-care (01) ==
LOC: EC 11:44
CPT/HCPCS: 12001; 90471; 90715; 99282